=== PATIENT | female | born 1940 | race Asian ===

== ENCOUNTER 2017-01-30 17:02 | Emergency (ER) | payer OTHER ==
[~2017-01-30] VITALS: Wt 60.0 kg
[~2017-01-30 17:02] MED LIST: ERGO500014 PO; FER325 PO; NEBI5TAB9 PO; PANT40TA3 PO; RENALOG PO
[2017-01-31] MEDS ORDERED: ONDANSETRON 4 MG INJ IV STA (00:15)
[2017-01-31] MEDS ORDERED: SOD CHLORIDE 0.9% 1,000 ML IV STA (00:15)
[2017-01-31 00:20] LABS: ADD SCAN DIFF NO
[2017-01-31 00:22] LABS: BASOPHILS % 0.2 % (0.0-2.0); EOSINOPHILS % 0.1 % (0.0-7.0); HEMATOCRIT 31.2 % (37.0-47.0); HEMOGLOBIN 10.3 g/dl (12.0-16.0); LYMPHOCYTES % 18.4 % (15.0-51.0); MEAN CORPUSCULAR HEMOGLOBIN 32.4 pg (29.0-33.0); MEAN CORPUSCULAR VOLUME 98.1 fl (82.0-101.0); MEAN PLATELET VOLUME 10.1 fl (7.4-10.4); MONOCYTE # 0.5 10^3/ul (0.3-0.9); MONOCYTES % 4.6 % (0.0-11.0); NEUTROPHIL # 8.4 10^3/ul (1.6-7.5); NEUTROPHILS % 76.1 % (39.0-77.0); PLATELET COUNT 296 10^3/UL (140-415); RED BLOOD COUNT 3.18 10^6/ul (4.20-5.40); RED CELL DISTRIBUTION WIDTH 12.1 % (11.5-14.5)
[2017-01-31 00:30] LABS: ALBUMIN 4.3 g/dl (3.3-4.9)
[2017-01-31 00:31] LABS: POTASSIUM 4.4 mmol/L (3.5-5.1)
[2017-01-31 00:33] LABS: ALBUMIN/GLOBULIN RATIO 1.07; BILIRUBIN,INDIRECT 0.3 mg/dl (0-1.1); BILIRUBIN,TOTAL 0.3 mg/dl (0.2-1.3); CREATININE 3.91 mg/dl (0.44-1.00); TOTAL PROTEIN 8.3 g/dl (6.1-8.1)
[2017-01-31 00:34] LABS: CALCIUM 9.2 mg/dl (8.4-10.2)
[2017-01-31 00:45] LABS: TROPONIN-I 0.019 ng/ml (0.00-0.12)
[2017-01-31 01:10] LABS: ADD UMIC YES; URINE BILIRUBIN (Dip) NEGATIVE (NEGATIVE); URINE BLOOD (Dip) 1+ (NEGATIVE); URINE COLOR LT. YELLOW (YELLOW); URINE KETONES (Dip) NEGATIVE (NEGATIVE); URINE LEUKOCYTE ESTERASE (Dip) NEGATIVE (NEGATIVE); URINE NITRITE (Dip) NEGATIVE (NEGATIVE); URINE TOTAL PROTEIN (Dip) 1+ (NEGATIVE); URINE UROBILINOGEN (Dip) 0.2 E.U./dL (0.1-1.0)
[2017-01-31] MEDS ORDERED: ONDA4TAB8 PO (01:17)
[2017-01-31] MEDS ORDERED: OXYCODONE/ACETAMINOPHEN (5/325) TAB PO ONE (01:30)
[2017-01-31 01:45] LABS: SQUAMOUS EPITHELIAL CELL,UR OCCASIONAL; URINE RBCS 0-2 /HPF ([, 0])
--- NOTE | 2017-01-31 01:54 | RADRPT ---
PROCEDURE: CT ABDOMEN/PELVIS WITHOUT CONTRAST CLINICAL INDICATION: 76-year-old female with abdominal pain. TECHNIQUE: The study was performed utilizing a [employer] VCT 64-slice CT scanner. Direct axia l sections were obtained through the abdomen and pelvis without the use of intravenous contrast mate rial. Sagittal and coronal reformations were obtained. One or more of the following dose reduction t echniques were utilized: automated exposure control, adjustment of the mA and/or kV according to pat ient's size or use of iterative reconstruction technique. The images were reviewed on a PACS workst [email or web address]. CTD/vol = 5.9 mGy; Total Exam DLP = 301.8 mGy-cm. COMPARISON: None. FINDINGS: Cardiomegaly is present. There is minimal bibasilar subsegmental atelectasis. There is a calcified subpleural granuloma within the medial basal segment of the right lower lobe measuring 5 x 5 mm on axial image 3-28. There is no evidence for significant pleural effusion. The liver has a normal si ze and contour without focal areas of abnormal density. No intrahepatic nor extrahepatic biliary carlos alia dilatation is seen. The gallbladder demonstrates no wall thickening nor pericholecystic fluid. N o biliary stones are evident. The pancreas is without areas of abnormal attenuation. The spleen is identified and has a normal size without abnormal density. The adrenal glands are unremarkable. The kidneys are moderately atrophic but without abnormal density. No hydroureteronephrosis nor nephroure terolithiasis is evident. The urinary bladder contains urine. There is air identified within the sma ll bowel without obstruction. There is mild retained stool throughout the colon without obstruction. The appendix is not visualized however there is no periappendiceal inflammatory change s. The uterus is atrophic and retroverted. There is no significant free fluid. The aortoiliac vess els are calcified but without aneurysmal dilatation. The osseous structures are intact. IMPRESSION: 1. Cardiomegaly. 2. Right lung base 5 mm granuloma. 3. Mild retained stool without obstruction. 4. Bilaterally atrophic kidneys without evidence for obstructive uropathy. 5. Vascular calcifications. .Nelson Kaur MD, MD Date Time Electronically viewed and signed by .Nelson Kaur MD, MD on 01/31/2017 01:54 .[place]/
[2017-01-31 02:08] VITALS: BP 113/65; PULSE 54; RESP 14; TEMP 97.9
--- NOTE | 2017-01-31 05:18 | ERD ---
ER Documentation Chief Complaint Date/Time DATE: 01/31/17 TIME: 05:14 Chief Complaint DIZZINESS FOR THE PAST FEW HR. SUDDEN ONSET. NO CP OR SOB. NO DIAPHORESIS HPI 76-year-old woman complaining of dizziness times a few hours. Dizziness began gradually and it was associated with mild abdominal cramping. She has had no weakness in her arms or legs, no falls, no chest pain or blurry vision. She also complains of headache which she has had in the past. Patient has had no vomiting or diarrhea. Patient has had no slurred speech. ROS All systems reviewed and are negative except as per history of present illness. Medications Home Meds Active Scripts Ondansetron Hcl* (Zofran*) 4 Mg Tablet, 4 MG PO Q8H Y for NAUSEA AND/OR VOMITING , #12 TAB Prov:VESTA MANLEY MD 01/31/17 Reported Medications [Renalog] No Conflict Check, PO WITH MEALS THREE TIMES DAILY THIS MED COMES FROM THE [facility] 07/20/16 Pantoprazole* (Protonix*) 40 Mg Tablet.dr, 40 MG PO DAILY, TAB 07/20/16 Ergocalciferol* (Drisdol* (Vitamin D2)) 50,000 Unit Capsule, 19891 UNIT PO Q7D, CAP PT TAKES ON Sundays07/20/16 Ferrous Sulfate* (Ferrous Sulfate*) 325 Mg Tabec, 325 MG PO DAILY, TAB 07/20/16 Nebivolol* (Bystolic*) 5 Mg Tab, 5 MG PO DAILY, #30 TAB 07/20/16 Allergies Allergies: Coded Allergies: No Known Allergy (Unverified , 07/20/16) PMhx/Soc Gastritis, renal failure not on dialysis History of Surgery: Yes (APPENDECTOMY ) Anesthesia Reaction: No Hx Neurological Disorder: No Hx Respiratory Disorders: No Hx Cardiac Disorders: Yes (HTN ) Hx Psychiatric Problems: No Hx Miscellaneous Medical Probl: Yes (GERD, ANEMIA, RENAL FAILURE ) Hx Alcohol Use: No Hx Substance Use: No Hx Tobacco Use: No Smoking Status: Former smoker FmHx Family History: No diabetes Physical Exam Vitals Vital Signs Date Time Temp Pulse Resp B/P Pulse Ox O2 Delivery O2 Flow Rate FiO2 01/31/17 02:08 97.9 54 14 113/65 98 Room Air 01/31/17 01:00 65 14 132/76 100 Room Air 01/30/17 23:40 98.1 77 23 122/64 100 Room Air 01/30/17 17:34 98.8 65 20 150/83 98 Physical Exam GENERAL: Well-developed, well-nourished, well-hydrated, in no apparent distress , looks nontoxic in appearance HEENT: Moist mucous membranes, pink conjunctiva, no cervical spine tenderness or step-off deformities, no goiter, no jaundice or icterus, extraocular movements intact without pain. No submandibular induration, and no pharyngeal erythema NEURO: Alert and oriented 3, cranial nerves II through XII intact bilaterally, pupils equal round reactive to light, no focal deficits or facial asymmetry, sensation intact distally Strength 5/5 in upper and lower extremities bilaterally CARDIAC: Regular rate and rhythm, no murmurs rubs or gallops LUNGS: Clear bilaterally no wheezing crackles or stridor ABDOMEN: Soft nontender, no guarding, no rigidity, no rebound, no psoas sign no obturator sign. Normoactive bowel sounds SKIN: Warm and dry to touch, no abrasions, contusions, or hematomas, no lacerations, no ecchymosis, no target lesions, and without ulcers EXTREMITIES: No clubbing cyanosis or edema, calves are bilaterally symmetrical, no Homans sign, no popliteal cord sign. Distal pulses equal and bilateral PSYCH: Normal affect without agitation or irritability Result Diagram: 01/30/17 2350 01/30/17 2350 Results 24 hrs Laboratory Tests Test 01/30/17 23:40 01/30/17 23:50 Urine Bilirubin NEGATIVE Urine Clarity CLEAR Urine Color LT. YELLOW Urine Glucose 0.25%% Urine Granular Casts OCCASIONAL Urine Hemoglobin 1+ Urine Hyaline Casts OCCASIONAL Urine Ketones NEGATIVE Urine Leukocyte Esterase NEGATIVE Urine Microscopic RBC 0-2/HPF Urine Microscopic WBC 0-2/HPF Urine Nitrite NEGATIVE Urine Specific [place] 1.010 Urine Squamous Epithelial Cells OCCASIONAL Urine Total Protein 1+ Urine Urobilinogen 0.2 E.U./dL Urine pH 6.5 Alanine Aminotransferase (ALT/SGPT) 23IU/L Albumin 4.3g/dl Albumin/Globulin Ratio 1.07 Alkaline Phosphatase 73IU/L Anion Gap 20 Aspartate Amino Transf (AST/SGOT) 28IU/L Basophils # 0.010^3/ul Basophils % 0.2% Blood Urea Nitrogen 34mg/dl Calcium Level 9.2mg/dl Carbon Dioxide Level 21mmol/L Chloride Level 107mmol/L Creatinine 3.91mg/dl Direct Bilirubin 0.00mg/dl Eosinophils # 0.010^3/ul Eosinophils % 0.1% Globulin 4.00g/dl Glucose Level 114mg/dl Hematocrit 31.2% Hemoglobin 10.3g/dl Indirect Bilirubin 0.3mg/dl Lipase 273U/L Lymphocytes # 2.010^3/ul Lymphocytes % 18.4% Mean Corpuscular Hemoglobin 32.4pg Mean Corpuscular Hemoglobin Concent 33.0g/dl Mean Corpuscular Volume 98.1fl Mean Platelet Volume 10.1fl Monocytes # 0.510^3/ul Monocytes % 4.6% Neutrophils # 8.410^3/ul Neutrophils % 76.1% Nucleated Red Blood Cells # 0.010^3/ul Nucleated Red Blood Cells % 0.0/100WBC Platelet Count 25449^3/UL Potassium Level 4.4mmol/L Red Blood Count 3.1810^6/ul Red Cell Distribution Width 12.1% Sodium Level 144mmol/L Total Bilirubin 0.3mg/dl Total Protein 8.3g/dl Troponin I 0.019ng/ml White Blood Count 11.010^3/ul Current Medications Medications (Trade) Dose Ordered Sig/Amilcar Route PRN Reason Start Time Stop Time Status Last Admin Dose Admin Sodium Chloride (NS) 1,000 ml @ 1,000 mls/hr Q1H STAT IV 01/31/17 00:15 01/31/17 01:14 DC 01/31/17 00:22 Ondansetron HCl (Zofran Inj) 4 mg ONCE STAT IV 01/31/17 00:15 01/31/17 00:16 DC 01/31/17 00:22 Oxycodone/ Acetaminophen (Percocet (5/ 325)) 1 tab ONCE ONCE PO 01/31/17 01:30 01/31/17 01:31 DC 01/31/17 01:15 Procedures/MDM IV line was established patient was placed on monitor tech rhythm strip revealed a sinus rhythm at about 60 bpm with upright P and T waves. Patient was afebrile. EKG performed, read by me: 64 bpm, normal sinus rhythm, normal axis, no acute ST segment changes, narrow QRS complex, with good R-wave progression in precordial leads. CT scan of the abdomen and pelvis was performed revealing a lung nodule, no acute inflammatory or infectious pathology was noted. Please refer to radiologist dictation for full report. For headache administered Percocet 1 tablet p.o. with good response, patient also received 1 L normal saline intravenously and Zofran 4 mg IV with good response. Neurologic exam was repeated by me after initial exam of prior to discharge. Has no focal deficits or facial asymmetry, gait is normal, she has no pronator drift or nystagmus, strength is bilaterally equal in upper and lower extremities CBC was unremarkable, electrolytes revealed renal insufficiency with a BUN/ creatinine of 34/3.9, liver function tests are normal, troponin was negative urinalysis was negative for infection. Differential diagnoses considered, included but not limited to acute coronary syndrome, pulmonary embolism, aortic dissection, abdominal aortic aneurysm, sepsis, stroke, meningitis, encephalitis, pneumonia, appendicitis, cholecystitis , bowel obstruction, pyelonephritis, nephrolithiasis, cystitis, as well as metabolic, hematologic, and electrolyte abnormalities. As well as abscess, cellulitis, fractures, and dislocations. Patient feels much better at this time, and vital signs are normal, symptoms have improved. I did give strict instructions to return to the ED if symptoms continue or worsen, patient will otherwise follow-up with primary care physician. Patient understood instructions and agreed to plan. Departure Diagnosis: Primary Impression: Dizziness Additional Impression: Chronic kidney disease Chronic kidney disease stage: unspecified stage Qualified Code: N18.9 - Chronic kidney disease, unspecified stage Condition: Good Patient Instructions: Dizziness, Unk Cause VESTA MANLEY MD Jan 31, 2017 05:18
== END 2017-01-31 02:08 | disposition home or self-care (01) ==
LOC: E/R 17:02
DX: R42 Dizziness and giddiness (principal); N18.9 Chronic kidney disease, unspecified; R40.2142 Coma scale, eyes open, spontaneous, at arrival to emergency department; R40.2362 Coma scale, best motor response, obeys commands, at arrival to emergency department; R40.2252 Coma scale, best verbal response, oriented, at arrival to emergency department; R10.9 Unspecified abdominal pain; I12.9 Hypertensive chronic kidney disease with stage 1 through stage 4 chronic kidney disease, or unspecified chronic kidney disease; Z87.891 Personal history of nicotine dependence
CPT/HCPCS: 74176; 80053; 81001; 81003; 83690; 84484; 85025; 87086; 93005; J2405; J7030; Z7610; 36415; 96374

== ENCOUNTER 2017-05-30 05:44 | Day surgery (SDC) | END 2017-05-30 10:20 | disposition home or self-care (01) | DX: I12.0 Hypertensive chronic kidney disease with stage 5 chronic kidney disease or end stage renal disease (principal); N18.6 End stage renal disease | CPT/HCPCS: 36821; 71010; 80053; 85025; 85610; 85730; 93005; J0690; J1644; J2250; J3010; Z7512; Z7610 ==

== ENCOUNTER 2018-03-20 11:50 | Emergency (ER) | END 2018-03-20 15:24 | disposition home or self-care (01) ==

== ENCOUNTER 2019-07-18 02:56 | Emergency (ER) | payer OTHER ==
[~2019-07-18] VITALS: Ht 152.4 cm; Wt 46.5 kg
[~2019-07-18 02:56] MED LIST changes: +CARV6.25 PO; +FAMO20TA18 PO; +MECL12.574 PO; -NEBI5TAB9 PO; +ONDA4TAB8 PO; -RENALOG PO; +SUCR1TAB56 PO
[2019-07-18 02:57] VITALS: Ht 152.4 cm; Wt 46.5 kg
[2019-07-18] MEDS ORDERED: ONDANSETRON 4 MG INJ IV STA (05:07)
[2019-07-18] MEDS ORDERED: LIDOCAINE/MYLANTA 40 ML BTL PO STA (05:07)
[2019-07-18] MEDS ORDERED: FAMOTIDINE 20 MG TAB PO STA (05:07)
[2019-07-18] MEDS ORDERED: OXYCODONE/ACETAMINOPHEN (5/325) TAB PO ONE (05:30)
[2019-07-18 08:04] VITALS: BP 116/70; PULSE 65; RESP 18
== END 2019-07-18 08:05 | disposition home or self-care (01) ==
LOC: E/R 02:56
DX: R10.13 Epigastric pain (principal); I12.0 Hypertensive chronic kidney disease with stage 5 chronic kidney disease or end stage renal disease; N18.6 End stage renal disease; Z87.891 Personal history of nicotine dependence; Z85.828 Personal history of other malignant neoplasm of skin; Z99.2 Dependence on renal dialysis
CPT/HCPCS: 36415; 74176; 80053; 81001; 82550; 83690; 84484; 85025; 87086; 96374; J2405; Z7502; Z7610